=== PATIENT | female | born 1945 | race Asian ===

== ENCOUNTER 2019-07-10 18:20 | Emergency (ER) | payer OTHER, BC ==
--- NOTE | 2019-07-10 18:26 | PDOC ---
Rapid Medical Evaluation Time Seen by Provider: 07/10/19 18:22 Medical Evaluation: Allergies Allergy/AdvReac Type Severity Reaction Status Date / Time codeine AdvReac Severe DIZZINESS;V Verified 05/07/15 11:03 OMITTING 07/10/19 18:22 I have performed a brief in-person evaluation of this patient. The patient presents with a chief complaint of: "mouth problem" - had biopsy "long time ago", but something opened up 2-3 days ago - saw [facility] today and was sent here "because of an ulcer" Pertinent physical exam findings: deep ulceration/cavity to L buccal mucosa I have ordered the following: labs The patient will proceed to the ED for further evaluation. Discharge Disposition - Diagnosis Open wound of buccal mucosa - Referrals - Patient Instructions - Post Discharge Activity
[2019-07-10 18:27] VITALS: BP 107/62; PULSE 89; TEMP 98.2; BMI 33.0
[2019-07-10 18:47] LABS: BASO % 0.7 % (0-2.0); EOS % 1.5 % (0-4.5); HEMATOCRIT 34.4 % (32.4-45.2); HEMOGLOBIN 10.8 GM/dL (10.7-15.3); LYMPH % 21.1 % (8-40); MCH 26.7 pg (25.7-33.7); MCHC 31.4 g/dl (32.0-36.0); MEAN CELL VOLUME 85.1 fl (80-96); MEAN PLT VOLUME 8.4 fl (7.5-11.1); MONO % 6.5 % (3.8-10.2); NEUT % 70.2 % (42.8-82.8); PLATELET COUNT 358 K/MM3 (134-434); RBC 4.04 M/mm3 (3.60-5.2); RDW 16.5 % (11.6-15.6); WHITE BLOOD COUNT 13.1 K/mm3 (4.0-10.0)
[2019-07-10 19:15] LABS: ALBUMIN 3.6 g/dl (3.4-5.0); BILIRUBIN,TOTAL 0.2 mg/dL (0.2-1); BLOOD UREA NITROGEN 6.6 mg/dL (7-18); CALCIUM 9.4 mg/dL (8.5-10.1); CREATININE 0.8 mg/dL (0.55-1.3); POTASSIUM 5.1 mmol/L (3.5-5.1); TOT PROT 6.9 g/dl (6.4-8.2)
--- NOTE | 2019-07-10 20:01 | PDOC ---
History of Present Illness - General Chief Complaint: Oral Ulcers Stated Complaint: MOUTH PROBLEM Time Seen by Provider: 07/10/19 18:22 History Source: Patient Exam Limitations: No Limitations - History of Present Illness Initial Comments: 07/10/19 20:34 HPI: 73F PMH IDDM HTN Hypothyroidism sent in by [facility] for further evaluation of an oral ulcer. Pt has had a left buccal lesion for the past 2-3 weeks but the lesion "opened" in the past 4-5 days. Lesion is painless and nondraining. Pt endorses localized soft tissue swelling. Endorses a remote hx similar lesion, pt states bx at the time was "normal." Endorses buccal trauma (pt bites buccal mucosa). Denies f/c, conjunctivitis, uveitis, changes in vision, lesions in other regions of the body, difficulty swallowing or breathing, recent abx use. PMH: as above, OA, chronic hyponatremia. Last A1c as reported by patient = 6.2 Allergies reviewed PCP on file Past History - Past Medical History Allergies/Adverse Reactions: Allergies Allergy/AdvReac Type Severity Reaction Status Date / Time codeine AdvReac Severe DIZZINESS;V Verified 05/07/15 11:03 OMITTING Home Medications: Ambulatory Orders Amlodipine Bes/Olmesartan Med [Diane 10-20 mg Tablet] 1 each PO DAILY 04/15/13 Carvedilol Phosphate [Coreg Cr] 80 mg PO HS 04/15/13 Exenatide Microspheres [Bydureon] 2 mg SQ WEEKLY 04/15/13 Insulin Glargine,Hum.rec.anlog [Lantus (10mL VIAL) -] 30 unit SQ DAILY 04/15/13 Levothyroxine [Synthroid -] 100 mcg PO DAILY 04/15/13 Metformin HCl [Riomet] 500 mg PO BID 04/15/13 Atorvastatin Ca [Lipitor] 10 mg PO HS 05/07/15 Anemia: No Asthma: Yes ("mild") Cancer: No Cardiac Disorders: No CVA: No COPD: No CHF: No Dementia: No Diabetes: Yes (type II) GI Disorders: No Disorders: No HTN: Yes Hypercholesterolemia: No Liver Disease: No Seizures: No Thyroid Disease: Yes (hypothyroidism) - Surgical History Abdominal Surgery: No Appendectomy: No Cardiac Surgery: No Cholecystectomy: No Lung Surgery: No Neurologic Surgery: No Orthopedic Surgery: Yes (arthroscopy right knee 2013 TOTAL KNEE REPLACEMENT) - Immunization History Immunization Up to Date: No - Psycho Social/Smoking Cessation Hx Smoking History: Never smoked Have you smoked in the past 12 months: No Information on smoking cessation initiated: No Hx Alcohol Use: No Drug/Substance Use Hx: No Substance Use Type: None Hx Substance Use Treatment: No Review of Systems - Review of Systems Able to Perform ROS?: Yes Comments:: 07/10/19 20:34 ROS: CONSTITUTIONAL: Denies F / C HEENT: Endorses buccal lesion. Denies changes to hearing, vision, tearing, ocular pain, difficulty swallowing RESP: Denies SOB CARD: Denies chest pain GI: Denies N / V / D, inability to tolerate PO : Denies dysuria, hematuria, frequency SKIN: Endorses recent allergies w/ rash on back and legs that was effectively treated w/ topical steroids. Is the patient limited Pashto proficient: No *Physical Exam - Vital Signs Last Vital Signs Temp Pulse Resp BP Pulse Ox 98.2 F 89 16 107/62 97 07/10/19 18:25 07/10/19 18:25 07/10/19 18:25 07/10/19 18:25 07/10/19 18:25 - Physical Exam Comments: 07/10/19 20:34 GEN: Well appearing, NAD, comfortable. AAOx3 HEENT: NC/AT, EOMI. No facial asymmetry. +soft tissue swelling of the left cheek. Moist mucous membranes, no posterior oropharynx erythema or exudate, 1.5x1.5 nontender nonbleeding ulcerated region on the left buccal mucousa that is firm to palpation w/ scant white discharge covering the crater, no visible necrosis. No other lesions of the oropharynx appreciated. Sensation grossly intact in the face. Questionable b/l anterior chain LAD. Normal voice. Supple neck w/ FROM. CV: S1/S2, RRR, +murmur LUNG: CTAB, no wheezes, crackles, rales, rhonchi. GI: soft, ndnt, +BS, no guarding, no rebound. EXTREMITIES: No obvious deformities of all extremities. SKIN: warm, dry, normal turgor PSYCH: normal mood and affect ED Treatment Course - LABORATORY CBC & Chemistry Diagram: 07/10/19 18:33 07/10/19 18:33 - ADDITIONAL ORDERS Additional order review: Laboratory Results 07/10/19 18:33 Sodium 134 L Potassium 5.1 Chloride 101 Carbon Dioxide 22 Anion Gap 10 BUN 6.6 L Creatinine 0.8 Est GFR (CKD-EPI)AfAm 85.97 Est GFR (CKD-EPI)NonAf 74.17 Random Glucose 224 H Calcium 9.4 Total Bilirubin 0.2 AST 17 ALT 23 Alkaline Phosphatase 56 Total Protein 6.9 Albumin 3.6 07/10/19 18:33 RBC 4.04 MCV 85.1 MCHC 31.4 L RDW 16.5 H MPV 8.4 Neutrophils % 70.2 Lymphocytes % 21.1 D Monocytes % 6.5 Eosinophils % 1.5 Basophils % 0.7 Medical Decision Making - Medical Decision Making 07/10/19 20:03 73F PMH IDDM sent by [facility] for further evaluation of a 1.5x1.5cm nonbleeding nontender buccal ulcer w/ firmness to palpation and localized swelling. DDx - apthuous ulcer, infectious etiology, likely malignancy Call placed to [facility] office (Dr. Jordan Marie, ) Labs sent by [facility] 07/10/19 20:39 Labs reviewed 07/10/19 20:55 Spoke to Pt [facility] conductor pullman Dr. Crooks who states he will attempt to obtain more hx and call back. 07/10/19 21:16 Patient requested to leave AMA. Patient is determined to be of sound mind and reasoning. The patient fully understands the care they are refusing and the risks associated with leaving before complete medical evaluation as explained by the medical team. The patient has been provided with a discharge summary, return precautions, and the reassurance that the Emergency Department will resume workup if the patient changes their mind. Immediate [facility] follow up in the next day has been urged. Discharge - Discharge Information Problems reviewed: Yes Clinical Impression/Diagnosis: Open wound of buccal mucosa Qualifiers: Encounter type: subsequent encounter Qualified Code(s): S01.502D - Unspecified open wound of oral cavity, subsequent encounter Condition: Stable Disposition: AGAINST MEDICAL ADVICE - Admission No - Follow up/Referral Referrals: Omar Pulido MD [Primary Care Provider] - - Patient Discharge Instructions Additional Instructions: You are leaving against medical advice and refusing complete evaluation of your oral ulcer. You have been explained the risks associated with leaving against medical advice. You are free to return to complete the evaluation at any time. Follow up with your oral surgeon regarding this ED visit in the next 1 day. IMMEDIATELY return to the closest ED if you experience any of the following: - Difficulty swallowing - Difficulty breathing - Increasing swelling of the lips, tongue, or mouth - High fever - ANYTHING that concerns you - Post Discharge Activity
--- NOTE | 2019-07-10 21:21 | PDOC ---
Documentation entered by Darling Yip SCRIBE, acting as scribe for Mariely Mora DO. Mariely Mora, : This documentation has been prepared by the Theodora panda Brenda, SCRIBE, under my direction and personally reviewed by me in its entirety. I confirm that the documentation accurately reflects all work, treatment, procedures, and medical decision making performed by me. Attending Attestation - Resident Resident Name: Juan F Mosqueda - ED Attending Attestation I have performed the following: I have examined & evaluated the patient, The case was reviewed & discussed with the resident, I agree w/resident's findings & plan, Exceptions are as noted - HPI HPI: 07/10/19 21:20 73yo female sent from [facility] for eval of a L buccal mass. Per the family - sent for a ct. No bleeding. No discharge. No cellulitis or infeciton, no abscess palpated. Pt denies difficulty swallowing or breathing. no neck pain. No cheek swelling. No chapa. - Physicial Exam PE: 07/10/19 21:02 GENERAL: Awake, alert, and fully oriented, in no acute distress HEAD: No signs of trauma EYES: PERRLA, EOMI, sclera anicteric, conjunctiva clear ENT: hearing grossly normal, nares patent, oropharynx clear without exudates. Moist mucosa, L buccal 1.5 well circumscribed lesion with a hard lesion in the center NECK: Normal ROM, supple, no lymphadenopathy, JVD, or masses LUNGS: Breath sounds equal, clear to auscultation bilaterally. No wheezes, and no crackles HEART: Regular rate and rhythm, normal S1 and S2, no murmurs, rubs or gallops ABDOMEN: Soft, nontender, normoactive bowel sounds. No guarding, no rebound. No masses EXTREMITIES: Normal range of motion, no edema. No clubbing or cyanosis. No cords, erythema, or tenderness NEUROLOGICAL: Cranial nerves II through XII grossly intact. Normal speech, normal gait SKIN:(+) 1.5 cm. Legion, well circumscribed on left buccal mucosa, inderated hard legion in center. No bleeding, no discharge, no signs of candidiasis. Posterior pharynx is clear, teeth are intact, nothing on lips and under the tongue. Warm, Dry, normal turgor, no rashes. 07/10/19 21:19 - Medical Decision Making 07/10/19 21:13 I, Dr. Mraiely Mora, DO, attest that this document has been prepared under my direction and personally reviewed by me in its entirety. I further attest, that it accurately reflects all work, treatment, procedures and medical decision -making performed by me. a/p: 73yo female with L buccal ulcer x 3 weeks -1.5cm well circumscribed ulcer no bleeding, no discharge from the ulcer -sent by [facility] for a poss ct -labs sent from [facility] reviewed, mildly elevated wbc -call placed to [facility] doc - [facility] professionals doc unsure why a ct was needed -will discuss with treating doc and call us back 07/10/19 21:16 son now states they want to AMA unsure why they need a ct will follow up with their [facility] tomorrow will give ama paperwork pt is nontoxic in appearance Note: The patient insists on leaving the emergency dept and is signing out against medical advice. The patient understands the risks and complications that may result from the refusal of medical care and admission which includes and permanent disability. The patient has the mental capacity of understanding the risks of refusing care and is capable of making an informed decision. The patient was instructed to return to the emergency department should she change her mind regarding medical care or should her condition worsen. The patient signed the Against Medical Advice form.
--- NOTE | 2019-07-11 06:21 | PDOC ---
*Physical Exam - Vital Signs Last Vital Signs Temp Pulse Resp BP Pulse Ox 98.2 F 89 16 107/62 97 07/10/19 18:25 07/10/19 18:25 07/10/19 18:25 07/10/19 18:25 07/10/19 18:25 ED Treatment Course - LABORATORY CBC & Chemistry Diagram: 07/10/19 18:33 07/10/19 18:33 - ADDITIONAL ORDERS Additional order review: Laboratory Results 07/10/19 18:33 Sodium 134 L Potassium 5.1 Chloride 101 Carbon Dioxide 22 Anion Gap 10 BUN 6.6 L Creatinine 0.8 Est GFR (CKD-EPI)AfAm 85.97 Est GFR (CKD-EPI)NonAf 74.17 Random Glucose 224 H Calcium 9.4 Total Bilirubin 0.2 AST 17 ALT 23 Alkaline Phosphatase 56 Total Protein 6.9 Albumin 3.6 07/10/19 18:33 RBC 4.04 MCV 85.1 MCHC 31.4 L RDW 16.5 H MPV 8.4 Neutrophils % 70.2 Lymphocytes % 21.1 D Monocytes % 6.5 Eosinophils % 1.5 Basophils % 0.7 Medical Decision Making - Medical Decision Making Patient fell down in ER. She got up and her knees gave out she then fell on her butt. She denies any pain from the fall and was able to get up with the help of ED staff and walk to her bed. She had no further complaints after the fall. She did not hit her head. Discharge - Discharge Information Problems reviewed: Yes Clinical Impression/Diagnosis: Open wound of buccal mucosa Qualifiers: Encounter type: subsequent encounter Qualified Code(s): S01.502D - Unspecified open wound of oral cavity, subsequent encounter Condition: Stable Disposition: AGAINST MEDICAL ADVICE - Follow up/Referral Referrals: Omar Pulido MD [Primary Care Provider] - - Patient Discharge Instructions Additional Instructions: You are leaving against medical advice and refusing complete evaluation of your oral ulcer. You have been explained the risks associated with leaving against medical advice. You are free to return to complete the evaluation at any time. Follow up with your oral surgeon regarding this ED visit in the next 1 day. IMMEDIATELY return to the closest ED if you experience any of the following: - Difficulty swallowing - Difficulty breathing - Increasing swelling of the lips, tongue, or mouth - High fever - ANYTHING that concerns you - Post Discharge Activity
== END 2019-07-10 22:45 | disposition left against medical advice (07) ==
LOC: JER 18:20
DX: K13.79 Other lesions of oral mucosa (principal); I10 Essential (primary) hypertension; E03.9 Hypothyroidism, unspecified; E11.9 Type 2 diabetes mellitus without complications; Z79.4 Long term (current) use of insulin; M19.90 Unspecified osteoarthritis, unspecified site; E87.1 Hypo-osmolality and hyponatremia; Z88.5 Allergy status to narcotic agent; S01.502D Unspecified open wound of oral cavity, subsequent encounter; X58.XXXD Exposure to other specified factors, subsequent encounter; W18.39XA Other fall on same level, initial encounter; Y93.89 Activity, other specified; Y92.238 Other place in hospital as the place of occurrence of the external cause; Y99.8 Other external cause status
CPT/HCPCS: 36415; 80053; 85025; 99281-25

== ENCOUNTER 2021-03-08 04:36 | Day surgery (SDC) | payer OTHER, BC ==
[2021-03-07 14:56] VITALS: BMI 26.4
[2021-03-08 08:14] LABS: BASO % 0.8 % (0-2.0); EOS % 1.8 % (0-4.5); HEMOGLOBIN 11.6 GM/dL (10.7-15.3); MCH 29.6 pg (25.7-33.7); MCHC 33.3 g/dl (32.0-36.0); MONO % 7.1 % (3.8-10.2); NEUT % 72.3 % (42.8-82.8); PLATELET COUNT 295 10^3/uL (134-434); RBC 3.93 M/mm3 (3.60-5.2); RDW 13.9 % (11.6-15.6); WHITE BLOOD COUNT 10.9 K/mm3 (4.0-10.0)
[2021-03-08 08:24] LABS: INR 0.99 (0.83-1.09); PROTHROMBIN TIME (PATIENT) 12.2 SEC (9.7-13.0)
[2021-03-08 08:41] LABS: ALBUMIN 3.4 g/dl (3.4-5.0); BLOOD UREA NITROGEN 12.9 mg/dL (7-18); CALCIUM 9.8 mg/dL (8.5-10.1)
[2021-03-08 08:44] LABS: CREATININE 0.8 mg/dL (0.55-1.3)
[2021-03-08 08:46] LABS: BILIRUBIN,TOTAL 0.3 mg/dL (0.2-1); TOT PROT 7.3 g/dl (6.4-8.2)
[2021-03-08] MEDS ORDERED: SODIUM CHLORIDE 500 ML IV SCH (10:30)
[2021-03-08] MEDS ORDERED: MIDAZOLAM HCL 2 MG/2 ML SINGLE DOSE VIAL IVPUSH ONE ×2 (10:45→11:00)
[2021-03-08 15:48] VITALS: BP 142/65; PULSE 78; TEMP 98
== END 2021-03-08 14:51 | disposition home or self-care (01) ==
LOC: JRADIR 04:36
PROVIDERS: ATTEND Internal Medicine
PROC: 0TB03ZX Excision of Right Kidney, Percutaneous Approach, Diagnostic (ICD-10-PCS; principal; 2021-03-08)
DX: N26.9 Renal sclerosis, unspecified (principal)
CPT/HCPCS: 36415; 50200; 80053; 85025; 85610

== ENCOUNTER 2022-02-19 16:10 | Emergency (ER) | payer OTHER, BC ==
[2022-02-19 16:31] VITALS: BMI 29.2
[2022-02-19] MEDS ORDERED: BEBTELOVIMAB (EUA) 175 MG/2 ML VIAL IVPUSH ONE (18:00)
[2022-02-19 20:13] VITALS: BP 160/58; PULSE 82; TEMP 98.2
== END 2022-02-19 20:13 | disposition home or self-care (01) ==
LOC: JER 16:10
DX: U07.1 COVID-19 (principal)
CPT/HCPCS: 0241U-QW; 96374; 99284-25; M0222; Q0222

== ENCOUNTER 2024-02-18 10:24 | Emergency (ER) | payer OTHER, BC ==
[2024-02-18 10:53] VITALS: BMI 20.7
[2024-02-18] MEDS ORDERED: ACETAMINOPHEN 500 MG TABLET (FP) ONE (12:26)
[2024-02-18 12:52] LABS: BASO % 0.1 % (0-2.0); EOS % 0.7 % (0-4.5); HEMATOCRIT 39.5 % (32.4-45.2); HEMOGLOBIN 13.3 GM/dL (10.7-15.3); LYMPH % 15.9 % (8-40); MCH 30.1 pg (25.7-33.7); MCHC 33.6 g/dl (32.0-36.0); MEAN CELL VOLUME 89.7 fl (80-96); MEAN PLT VOLUME 8.2 fl (7.5-11.1); MONO % 6.5 % (3.8-10.2); NEUT % 76.8 % (42.8-82.8); PLATELET COUNT 379 10^3/uL (134-434); RDW 14.5 % (11.6-15.6); WHITE BLOOD COUNT 9.5 K/mm3 (4.0-10.0)
[2024-02-18 13:00] LABS: INR 1.12 (0.83-1.09); PROTHROMBIN TIME (PATIENT) 12.8 SEC (9.7-13.0)
[2024-02-18 13:09] LABS: POTASSIUM 4.1 mmol/L (3.5-5.1)
[2024-02-18 13:11] LABS: ALBUMIN 2.8 g/dl (3.4-5.0); CALCIUM 9.1 mg/dL (8.5-10.1)
[2024-02-18 13:12] LABS: BLOOD UREA NITROGEN 25.7 mg/dL (7-18); MAGNESIUM 1.8 mg/dL (1.8-2.4)
[2024-02-18 13:14] LABS: CREATININE 1.7 mg/dL (0.55-1.3); PHOSPHOROUS 3.7 mg/dL (2.5-4.9)
[2024-02-18 13:16] LABS: BILIRUBIN,TOTAL 0.5 mg/dL (0.2-1); TOT PROT 6.7 g/dl (6.4-8.2)
[2024-02-18 15:36] LABS: URINE APPEARANCE CLEAR; URINE BILIRUBIN NEGATIVE (NEGATIVE); URINE COLOR YELLOW; URINE GLUCOSE (UA) 3+ (NEGATIVE); URINE KETONE TRACE (NEGATIVE); URINE LEUK ESTERASE NEGATIVE (NEGATIVE); URINE NITRITE NEGATIVE (NEGATIVE); URINE PROTEIN NEGATIVE (NEGATIVE); URINE UROBILINOGEN 0.2 mg/dL (0.2-1.0)
[2024-02-18] MEDS: SODIUM CHLORIDE 0.9% 500 ML INFUS.BAG IV ONE (16:02)
[2024-02-18 18:59] LABS: POTASSIUM 5.2 mmol/L (3.5-5.1)
[2024-02-18 19:01] LABS: CALCIUM 8.7 mg/dL (8.5-10.1)
[2024-02-18 19:02] LABS: ALBUMIN 2.5 g/dl (3.4-5.0)
[2024-02-18 19:05] LABS: CREATININE 1.5 mg/dL (0.55-1.3)
[2024-02-18 19:06] LABS: BILIRUBIN,TOTAL 0.5 mg/dL (0.2-1); TOT PROT 6.6 g/dl (6.4-8.2)
[2024-02-18 19:53] VITALS: BP 139/75; PULSE 62; TEMP 97.8
[2024-02-18 19:55] VITALS: RESP 17
== END 2024-02-18 19:56 | disposition home or self-care (01) ==
LOC: JER 10:24
DX: N17.9 Acute kidney failure, unspecified (principal); R11.2 Nausea with vomiting, unspecified; R42 Dizziness and giddiness; R63.0 Anorexia; Z20.822 Contact with and (suspected) exposure to COVID-19
CPT/HCPCS: 0241U-QW; 36415; 71045-TC-FY; 80053; 81003; 82550; 83690; 83735; 84100; 84484; 85025; 85610; 85730; 87086; 93005; 93010; 99285-25